=== PATIENT | female | born 1980 | race Caucasian/White ===

== ENCOUNTER 2017-05-30 11:30 | Emergency (ER) | payer MEDICAID ==
[2017-05-30] MEDS ORDERED: CYCLOBENZAPRINE 10 MG TAB PO ONE (12:33)
--- NOTE | 2017-05-30 12:34 | EDPHY ---
H & P Stated Complaint: Slid on gravel 2 days ago,states her lower back is swollen and painful - Personal History LMP (Females 10-55): 8-14 Days Ago Current Tetanus Diphtheria and Acellular Pertussis (TDAP): Unsure - Medical/Surgical History Other PMH: neg per hx - Social History Smoking Status: Current every day smoker Time Seen by Provider: 05/30/17 12:07 HPI/ROS: CHIEF COMPLAINT: Low back pain post mechanical fall HISTORY OF PRESENT ILLNESS: 37-year-old female states that 2 days ago she was walking on gravel and sustained a mechanical slip and fall landing on her left side. She complained of mild low back pain at that time which has become progressively worse especially after walking a large dog that was tugging last evening. No incontinence. No retention. No saddle anesthesia. No radiculopathy. No foot drop. Pain is reproducible with range of motion at the waist. PRIMARY CARE PROVIDER: REVIEW OF SYSTEMS: A ten point review of systems was performed and is negative with the exception of the items mentioned in the HPI PAST MEDICAL/SURGICAL HISTORY: no anticoagulant use, no relevant medical/ surgical history SOCIAL HISTORY: denies alcohol use at time of incident PHYSICAL EXAM 1) GENERAL: Well-developed, well-nourished, alert and oriented. Appears to be in no acute distress. Answering questions appropriately. 2) HEAD: Normocephalic, atraumatic 3) HEENT: Pupils equal, round, reactive to light bilaterally. 4) NECK: No cervical collar is on. Posterior cervical spine is nontender, no stepoff, no effusion. Full range of motion which does not elicit any midline cervical spine pain, no posterior midline tenderness, no step-off. 5) LUNGS: Clear to auscultation bilaterally, no wheezes, no rhonchi, no retractions. No obvious signs of trauma. No chest wall pain. No flaring, no grunting. Moving symmetrically. No crepitus. 6) HEART: Regular rate and rhythm, 7) ABDOMEN: No guarding, no rebound, no focal tenderness, no peritoneal signs, no signs of trauma, no ecchymosis 8) MUSCULOSKELETAL: Moving all extremities, no focal areas of tenderness, no obvious trauma. 9) BACK: Patient is unable to completely differentiate true midline versus just lateral of midline lumbar spine pain. Patella and Achilles reflexes intact , bilateral strength 5/5, no footdrop, 10) SKIN: No laceration. No abrasion DIFFERENTIAL DIAGNOSIS: [ In no particular order, including but not limited to, fracture, sprain/strain, cauda equina, spinal infectious etiology. (Yessi Valencia) Constitutional: Initial Vital Signs Temperature (C) 36.6 C 05/30/17 11:32 Heart Rate 94 05/30/17 11:32 Respiratory Rate 18 05/30/17 11:32 Blood Pressure 138/71 H 05/30/17 11:32 O2 Sat (%) 98 05/30/17 11:32 O2 Delivery Mode Room Air Allergies/Adverse Reactions: No Known Allergies Allergy (Unverified 05/30/17 11:36) Home Medications: Medication Instructions Recorded oxyCODONE/APAP 5/325 [Percocet 1 tab PO Q6 #10 tab 05/30/17 5/325] Medical Decision Making - Diagnostics Imaging Results: Images reviewed myself (Yessi Valencia) ED Course/Re-evaluation: Discussed case with secondary supervising physician Dr. Edna Ferrell. 4:29 p.m.: MRI of the lumbar spine interpreted by radiologist shows no fracture. 4:32 p.m.: Patient was re-evaluated. She is feeling improvement after oral Percocet. There is no evidence of spinal compressive disorder, no evidence of fracture on x-ray. Plan will be discharge home with my usual and customary back precautions instructions. She feels comfortable with this plan. (Yessi Valencia) The patient was evaluated and managed by the physician grooming assistant. I have reviewed this chart and I agree with the findings and plan of care as documented , as indicated by my signature. I am the secondary supervising physician. ( Edna Ferrell) - Data Points Medications Given: Discontinued Medications Cyclobenzaprine HCl (Flexeril) 10 mg PO EDNOW ONE Stop: 05/30/17 12:34 Last Admin: 05/30/17 12:53 Dose: 10 mg Oxycodone/Acetaminophen (Percocet 5/325) 1 tab PO EDNOW ONE Stop: 05/30/17 13:56 Last Admin: 05/30/17 14:00 Dose: 1 tab Departure - Departure Disposition: Home, Routine, Self-Care Clinical Impression: Low back pain Condition: Good Instructions: Acute Low Back Pain (ED) Additional Instructions: Seek medical attention if you develop new or worsening pain, if you develop bladder or bowel dysfunction, numbness around your perineum, foot drop, or any other symptoms that concern you. Referrals: [facility],. [Clinic] - 1-2 days without fail Prescriptions: oxyCODONE/APAP 5/325 [Percocet 5/325] 1 tab PO Q6 #10 tab
[2017-05-30] MEDS ORDERED: OXYCODONE/APAP 5/325 TAB ONE (13:54)
[2017-05-30] MEDS ORDERED: OXYCODONE/APAP 5/325 TAB PO ONE (13:55)
[2017-05-30 16:54] VITALS: BP 118/74; PULSE 70; RESP 14; TEMP 98.4; O2SAT 94
== END 2017-05-30 16:54 | disposition home or self-care (01) ==
DX: S39.92XA Unspecified injury of lower back, initial encounter (principal); F17.200 Nicotine dependence, unspecified, uncomplicated; W01.0XXA Fall on same level from slipping, tripping and stumbling without subsequent striking against object, initial encounter; Y99.8 Other external cause status; Y93.01 Activity, walking, marching and hiking